=== PATIENT | female | born 1960 | race Asian ===

== ENCOUNTER 2016-10-21 14:48 | Emergency (ER) | payer OTHER ==
[~2016-10-21] VITALS: Ht 152.4 cm; Wt 78.5 kg
[~2016-10-21 14:48] MED LIST: ALBU8.5H3 INH; ALBU8.5H5 INH; ALLO100T PO; AZIT500T5 PO; FER325 PO; GLIM4TAB PO; LOSA50TA6 PO; METO25TA4 PO; PRED50 PO; SITA50TA2 PO
[2016-10-21 15:10] VITALS: Ht 152.4 cm; Wt 78.5 kg
--- NOTE | 2016-10-21 16:17 | ERD ---
ER Documentation Chief Complaint Date/Time DATE: 10/21/16 TIME: 16:15 Chief Complaint productive cough w/ greenish thick sputum; shortness of breath x 4 days HPI This patient is a 56-year-old female with history of diabetes, high blood pressure, and high cholesterol presenting to the emergency department for reductive cough of green sputum for the past 3 days. She states the cough is worsening. She states the cough is worse at night. She has had no fever, chills, nausea, vomiting, diarrhea, urinary symptoms, chest pain, or shortness of breath. ROS All systems reviewed and are negative except as per history of present illness. Medications Home Meds Active Scripts Benzonatate* (Tessalon Perle*) 100 Mg Capsule, 100 MG PO Q8H Y for COUGH, #15 CAP Prov:LUNA KING PA-C 10/21/16 Albuterol Sulfate* (Ventolin HFA*) 18 Gm Hfa.aer.ad, 2 PUFF INHALATION Q4H, #1 INHALER Prov:LUNA KING PA-C 10/21/16 Azithromycin* (Azithromycin*) 250 Mg Tablet, 250 MG PO DAILY Y for take as directed, #1 PACKET Prov:LUNA KING PA-C 10/21/16 Prednisone (Prednisone) 50 Mg Tab, 50 MG PO ONCE for 5 Days, TAB Prov:JEFF HARRIS 03/29/16 Azithromycin* (Azithromycin*) 500 Mg Tablet, 500 MG PO ONCE for 5 Days, TAB Prov:JEFF HARRIS 03/29/16 Albuterol Sulfate* (Proair HFA*) 8.5 Gm Hfa.aer.ad, 2 PUFF INH Q4H Y for WHEEZING AND SOB, #1 INHALER Prov:JEFF HARRIS 03/29/16 Albuterol Sulfate* (Albuterol Sulfate* HFA) 8.5 Gm Hfa.aer.ad, 1-2 PUFF INH Q4 Y for SHORTNESS OF BREATH, #1 EA Prov:LUNA DAY 04/22/15 Reported Medications Ferrous Sulfate* (Ferrous Sulfate*) 325 Mg Tabec, 325 MG PO DAILY, TAB 03/29/16 Albuterol Sulfate* (Proair HFA*) 8.5 Gm Hfa.aer.ad, 2 PUFF INH Q6H Y for WHEEZING AND SOB, #1 INHALER 03/29/16 Metoprolol Tartrate* (Lopressor*) 25 Mg Tablet, 12.5 MG PO BID, #60 TAB 03/29/16 Losartan Potassium* (Losartan Potassium*) 50 Mg Tablet, 50 MG PO DAILY, TAB 03/29/16 Sitagliptin* (Januvia*) 50 Mg Tablet, 50 MG PO DAILY, #30 TAB 03/29/16 Glimepiride* (Glimepiride*) 4 Mg Tablet, 4 MG PO WITH BREAKFAST DINNE, TAB 03/29/16 Allopurinol* (Allopurinol*) 100 Mg Tablet, 100 MG PO BID, TAB 03/29/16 Allergies Allergies: Coded Allergies: No Known Allergy (Unverified , 03/29/16) PMhx/Soc History of Surgery: Yes (GALLBLADDER REMOVED) Anesthesia Reaction: No Hx Neurological Disorder: No Hx Respiratory Disorders: No Hx Cardiac Disorders: Yes (HYPERTENSION) Hx Psychiatric Problems: No Hx Miscellaneous Medical Probl: Yes (DM) Hx Alcohol Use: No Hx Substance Use: No Hx Tobacco Use: No FmHx Noncontributory for chief complaint Physical Exam Vitals Vital Signs Date Time Temp Pulse Resp B/P Pulse Ox O2 Delivery O2 Flow Rate FiO2 10/21/16 15:10 98.0 81 19 124/68 100 Physical Exam INITIAL VITAL SIGNS: Reviewed by me. GENERAL: Alert and interactive. No acute distress. HEAD: Head is normocephalic and atraumatic. EYES: EOMI. No scleral icterus. No conjunctival injection. ENT: Moist mucosa. NECK: Supple. Full range of motion. RESPIRATORY: Normal respiratory effort. Clear breath sounds bilaterally. No wheezing, rales, or rhonchi. CV: Regular rate and rhythm. Normal S1 S2. No S3 or S4. No murmurs. ABDOMEN: Soft, non-distended, non-tender. No guarding. No rebound. No masses. EXTREMITIES: No deformity. SKIN: Warm and dry. NEUROLOGIC: Alert and oriented x 4. Speech is normal. Moves all extremities equally. No motor or sensory deficits noted. Procedures/MDM EMERGENCY DEPARTMENT COURSE / MEDICAL DECISION MAKING: This is a 56-year-old female who comes to the emergency room secondary to complaints of productive cough of green sputum for 3 days. The primary diagnosis is bronchitis. Secondary diagnosis is upper respiratory infection I have low suspicion for pneumonia, asthma exacerbation, or other emergencies at this time. Discharge: I have discussed the lab results and diagnostic findings with the patient and answered any questions or concerns. The patient was discharged with a prescription for Tessalon Perles, albuterol inhaler, and a Z-Jaime. The patient was advised to followup with their PMD in 1-2 days and to return to the Emergency Department if there are any new or worsening symptoms. The patient understood and agreed with the diagnosis, treatment and plan. The patient is stable for discharge at this time. Departure Diagnosis: Primary Impression: Bronchitis Additional Impression: Upper respiratory infection Condition: Stable Additional Instructions: Follow-up with your primary care physician within 1 week. Return to the emergency department immediately should you have any new or worsening symptoms, uncontrolled fevers, or other unexplained symptoms. Take all medications as directed. LUNA KING PA-C Oct 21, 2016 16:17
[2016-10-21] MEDS ORDERED: ALBU18HF INHALATION (16:19)
[2016-10-21] MEDS ORDERED: BENZ100C70 PO (16:19)
[2016-10-21] MEDS ORDERED: AZIT250T4 PO (16:19)
== END 2016-10-21 16:30 | disposition home or self-care (01) ==
LOC: E/R 14:48
DX: J20.9 Acute bronchitis, unspecified (principal); J06.9 Acute upper respiratory infection, unspecified; I10 Essential (primary) hypertension; E11.9 Type 2 diabetes mellitus without complications; Z79.84 Long term (current) use of oral hypoglycemic drugs
CPT/HCPCS: 99284

== ENCOUNTER 2017-08-18 12:19 | Emergency (ER) | payer OTHER ==
[~2017-08-18] VITALS: Ht 157.5 cm; Wt 82.2 kg
[~2017-08-18 12:19] MED LIST changes: +ALBU18HF INHALATION; +AZIT250T6 PO; +BENZ100C70 PO
[2017-08-18 12:21] VITALS: Ht 157.5 cm; Wt 82.2 kg
--- NOTE | 2017-08-18 13:42 | RADRPT ---
PROCEDURE: XR Chest. CLINICAL INDICATION: Cough TECHNIQUE: Single portable view of the chest was obtained. COMPARISON: 04/22/2015 FINDINGS: Cardiac/vascular structures: Normal cardiomediastinal silhouette. Pulmonary: Left basilar airspace opacity.. No pleural effusion. No evidence of pneumothorax. Osseous structures: Normal Soft tissues: Normal IMPRESSION: Left basilar airspace opacity representing atelectasis or pneumonia. RPTAT:AAJJ Physician Roxanna Date Time Electronically viewed and signed by Prabhu Ramirez Physician on 08/18/2017 13:42 /
[2017-08-18] MEDS ORDERED: AZIT250T94 PO (13:47)
[2017-08-18] MEDS ORDERED: ALBU8.5H3 INH (13:47)
[2017-08-18] MEDS ORDERED: ACET500C5 PO (13:47)
[2017-08-18] MEDS ORDERED: BENZ100C70 PO (13:49)
--- NOTE | 2017-08-18 15:57 | ERD ---
ER Documentation Chief Complaint Chief Complaint Complains of a sorethroat x 3 days HPI Patient is a 57-year-old female with history of DM type II, hypertension, hyperlipidemia, who presents to the ED for concerns of a cough and sore throat 4 days. Patient states her cough is dry in nature. Patient reports throat pain with swallowing. Patient denies any trismus, drooling or hyperextension of her neck. Patient denies any fevers or chills. Patient does report shortness of breath however she denies any chest pain, left upper extremity pain , nausea, vomiting, diaphoresis or loss consciousness. Patient denies receiving the flu vaccination this year. Denies any abdominal pain, diarrhea. No sick contacts. No recent travel. Patient is requesting a refill of her albuterol inhaler given that she states is helped her in the past. ROS All systems reviewed and are negative except as per history of present illness. Medications Home Meds Active Scripts Benzonatate* (Tessalon Perle*) 100 Mg Capsule, 100 MG PO Q8H Y for COUGH, #20 CAP Prov:HECTOR CAM PA-C 08/18/17 Albuterol Sulfate* (Proair HFA*) 8.5 Gm Hfa.aer.ad, 2 PUFF INH Q4, #1 INHALER Prov:HECTOR CAM PA-C 08/18/17 Acetaminophen* (Tylophen*) 500 Mg Capsule, 1 CAP PO Q6H Y for PAIN AND OR ELEVATED TEMP, #20 CAP Prov:HECTOR CAM PA-C 08/18/17 Azithromycin* (Zithromax*) 250 Mg Tablet, 250 MG PO .ISHACK DIRECTED, #6 TAB TAKE 500 MG (2 TABS) THE FIRST DAY THEN 250 MG (1 TAB) DAYS 2-5 Prov:HECTOR CAM PA-C 08/18/17 Benzonatate* (Tessalon Perle*) 100 Mg Capsule, 100 MG PO Q8H Y for COUGH, #15 CAP Prov:LUNA KING PA-C 10/21/16 Albuterol Sulfate* (Ventolin HFA*) 18 Gm Hfa.aer.ad, 2 PUFF INHALATION Q4H, #1 INHALER Prov:LUNA KING PA-C 10/21/16 Azithromycin* (Azithromycin*) 250 Mg Tablet, 250 MG PO DAILY Y for take as directed, #1 PACKET Prov:LUNA KING PA-C 10/21/16 Prednisone (Prednisone) 50 Mg Tab, 50 MG PO ONCE for 5 Days, TAB Prov:KIMBERLY,JEFF 03/29/16 Azithromycin* (Azithromycin*) 500 Mg Tablet, 500 MG PO ONCE for 5 Days, TAB Prov:IVÁN HARRISTHIA 03/29/16 Albuterol Sulfate* (Proair HFA*) 8.5 Gm Hfa.aer.ad, 2 PUFF INH Q4H Y for WHEEZING AND SOB, #1 INHALER Prov:JEFF HARRIS 03/29/16 Albuterol Sulfate* (Albuterol Sulfate* HFA) 8.5 Gm Hfa.aer.ad, 1-2 PUFF INH Q4 Y for SHORTNESS OF BREATH, #1 EA Prov:LUNA DAY 04/22/15 Reported Medications Ferrous Sulfate* (Ferrous Sulfate*) 325 Mg Tabec, 325 MG PO DAILY, TAB 03/29/16 Albuterol Sulfate* (Proair HFA*) 8.5 Gm Hfa.aer.ad, 2 PUFF INH Q6H Y for WHEEZING AND SOB, #1 INHALER 03/29/16 Metoprolol Tartrate* (Lopressor*) 25 Mg Tablet, 12.5 MG PO BID, #60 TAB 03/29/16 Losartan Potassium* (Losartan Potassium*) 50 Mg Tablet, 50 MG PO DAILY, TAB 03/29/16 Sitagliptin* (Januvia*) 50 Mg Tablet, 50 MG PO DAILY, #30 TAB 03/29/16 Glimepiride* (Glimepiride*) 4 Mg Tablet, 4 MG PO WITH BREAKFAST DINNE, TAB 03/29/16 Allopurinol* (Allopurinol*) 100 Mg Tablet, 100 MG PO BID, TAB 03/29/16 Allergies Allergies: Coded Allergies: No Known Allergy (Unverified , 03/29/16) PMhx/Soc History of Surgery: Yes (GALLBLADDER REMOVED) Anesthesia Reaction: No Hx Neurological Disorder: No Hx Respiratory Disorders: No Hx Cardiac Disorders: Yes (HYPERTENSION) Hx Psychiatric Problems: No Hx Miscellaneous Medical Probl: Yes (DM) Hx Alcohol Use: No Hx Substance Use: No Hx Tobacco Use: No Smoking Status: Never smoker Physical Exam Vitals Vital Signs Date Time Temp Pulse Resp B/P Pulse Ox O2 Delivery O2 Flow Rate FiO2 08/18/17 12:21 97.9 86 20 150/72 100 Physical Exam GENERAL: Well-developed, well-nourished female. Appears in no acute distress. Genital retractions, no nasal flaring, no tripoding. HEAD: Normocephalic, atraumatic. No deformities or ecchymosis. EYE: Pupils equal, round, and reactive to light. EOMs intact. No conjunctival erythema. No eye discharge. ENT: External ear without any masses or tenderness. Auditory canals clear bilaterally. TM visualized bilaterally, non-erythematous, non-bulging. Nasal mucosa pink with no discharge. Oropharynx is erythematous without any tonsillar swelling or exudates. No uvula deviation. No kissing tonsils. NECK: Supple. No meningismus. Normal ROM of the neck. LUNG: Clear to auscultation bilaterally. HEART: Regular rate and rhythm. No murmurs, rubs or gallops. BACK: No midline tenderness. EXTREMITES: Equal pulses bilaterally. No peripheral clubbing, cyanosis or edema. No unilateral leg swelling. NEUROLOGIC: Alert and oriented to person, place and time. Moving all four extremities. 5/5 strength in all extremities. Normal speech. Steady gait. SKIN: Normal color. Warm and dry. No rashes or lesions. Procedures/MDM ED COURSE: The patient was stable throughout ED course. I kept the patient and/or family informed of laboratory and diagnostic imaging results throughout the ED course. DIAGNOSTIC IMAGING: Read by radiologist. Patient: JAMAR FAUSTIN : 1960 Age: 57 Sex: F MR #: [id number] DOS: 08/18/17 1246 Ordering MD: HECTOR CAM PA-C Location: [facility] Room/Bed: PROCEDURE: XR Chest. CLINICAL INDICATION: Cough TECHNIQUE: Single portable view of the chest was obtained. COMPARISON: 04/22/2015 FINDINGS: Cardiac/vascular structures: Normal cardiomediastinal silhouette. Pulmonary: Left basilar airspace opacity.. No pleural effusion. No evidence of pneumothorax. Osseous structures: Normal Soft tissues: Normal IMPRESSION: Left basilar airspace opacity representing atelectasis or pneumonia. RPTAT:AAJJ Physician Roxanna Date Time Electronically viewed and signed by Prabhu Ramirez Physician on 08/18/2017 13 :42 MH/ CC: HECTOR CAM PA-C MEDICAL DECISION MAKING: This is a 57-year-old female who presents ED for concerns of throat pain and cough is 4 days. Vital signs were reviewed. Patient was afebrile. Patient was not hypoxic. ENT exam was normal. Lung exam was normal. Chest x-ray was obtained and showed left basilar airspace opacity representing atelectasis or pneumonia. Given these findings, the patient's presentation is most consistent with pneumonia. Low suspicion for pneumothorax, CHF, pleural effusion, ACS, meningitis, sinusitis, otitis externa, acute otitis media, strep pharyngitis, epiglottitis or peritonsillar abscess. PRESCRIPTIONS: Tylenol/Ibuprofen for fever and pain control. DISCHARGE: At this time, patient is stable for discharge and outpatient management. Supportive therapies such as OTC throat lozenges, salt water gurgles, popsicles and jello discussed. I have instructed the patient to follow-up with his/her primary care physician in 1-2 days. I have instructed the patient to promptly return to the ER for any new or worsening symptoms including increased pain, swelling, fever, nausea, vomiting, weakness or difficulty breathing. The patient and/or family expressed understanding of and agreement with this plan. All questions were answered. Home care instructions were provided. Patients blood pressure was elevated (>120/80) but appears stable without evidence of hypertensive emergency, hypertensive urgency or end-organ failure. I had discussion with the patient about the risks of hypertension. I have advised the patient to follow up with his/her primary care physician for outpatient monitoring and treatment for hypertension in 2-3 days. I have instructed the patient to return to the ER for any new or worsening symptoms including chest pain, shortness of breath, headache, blurred vision, confusion, nausea, vomiting or LOC. Disclaimer: Inadvertent spelling and grammatical errors are likely due to EHR/ dictation software use and do not reflect on the overall quality of patient care. Also, please note that the electronic time recorded on this note does not necessarily reflect the actual time of the patient encounter. Departure Diagnosis: Primary Impression: Pneumonia Pneumonia type: due to unspecified organism Laterality: left Lung location : unspecified part of lung Qualified Code: J18.9 - Pneumonia of left lung due to infectious organism, unspecified part of lung Condition: Stable Patient Instructions: What Is Pneumonia? Additional Instructions: Call your primary care doctor TOMORROW for an appointment during the next 1-2 days.See the doctor sooner or return here if your condition worsens before your appointment time. HECTOR CAM PA-C Aug 18, 2017 15:57
== END 2017-08-18 14:03 | disposition home or self-care (01) ==
LOC: FTE 12:19
DX: J18.9 Pneumonia, unspecified organism (principal); I10 Essential (primary) hypertension; E11.9 Type 2 diabetes mellitus without complications; Z79.84 Long term (current) use of oral hypoglycemic drugs
CPT/HCPCS: 71010; Z7502

== ENCOUNTER 2017-12-07 17:24 | Emergency (ER) | END 2017-12-07 18:10 | disposition home or self-care (01) ==

== ENCOUNTER 2018-05-24 09:57 | Emergency (ER) | END 2018-05-24 14:01 | disposition home or self-care (01) ==